=== PATIENT | female | born 1970 | race Caucasian/White ===

== ENCOUNTER 2016-08-22 21:55 | Emergency (ER) | payer OTHER ==
[~2016-08-22] VITALS: Ht 162.6 cm; Wt 59.0 kg
[~2016-08-22 21:55] MED LIST: ATIVAN1 MG PO; NAPROXEN SODIU220 M2 PO; PROZAC 10 MG CA10 MG PO
[2016-08-22 23:31] LABS: ABSOLUTE NEUTROPHILS 2.1 thou/uL (1.4-8.2); BASOPHILS 0.7 % (0.0-2.0); EOSINOPHILS 2.6 % (0.0-3.0); HEMATOCRIT 41.5 % (37.0-47.0); HEMOGLOBIN 14.1 gm/dL (12.0-15.0); LYMPHOCYTES 46.9 % (24.0-44.0); MCH 33.6 pg (26.0-34.0); MCV 98.8 fL (80.0-100.0); MONOCYTES 8.2 % (1.0-8.0); PLATELET COUNT 381 thou/uL (150-400); POLYS 41.6 % (36.0-66.0); RDW 12.7 % (10.5-14.5)
[2016-08-22 23:32] LABS: MANUAL DIFF NO
[2016-08-22 23:39] LABS: CALCIUM 8.9 mg/dL (8.5-10.1); CREATININE 0.6 mg/dL (0.6-1.0); POTASSIUM 3.9 mmol/L (3.5-5.1)
[2016-08-22 23:44] LABS: TOTAL BILIRUBIN 0.2 mg/dL (<0.1-1.0); TOTAL PROTEIN 7.7 g/dL (6.4-8.2)
[2016-08-22 23:51] VITALS: BP 125/81
== END 2016-08-22 23:21 | disposition home or self-care (01) ==
LOC: ER 21:55
PROVIDERS: Physician Assistant
DX: S93.601A Unspecified sprain of right foot, initial encounter (principal); F41.9 Anxiety disorder, unspecified; F32.9 Major depressive disorder, single episode, unspecified; F17.210 Nicotine dependence, cigarettes, uncomplicated; F10.99 Alcohol use, unspecified with unspecified alcohol-induced disorder; Z88.2 Allergy status to sulfonamides; Z88.5 Allergy status to narcotic agent; X58.XXXA Exposure to other specified factors, initial encounter; Y93.89 Activity, other specified; Y92.89 Other specified places as the place of occurrence of the external cause; Y99.8 Other external cause status

== ENCOUNTER 2017-05-06 07:09 | Emergency (ER) | payer OTHER ==
[~2017-05-06] VITALS: Ht 162.6 cm; Wt 68.0 kg
--- NOTE | ~2017-05-06 | EKG ---
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
[~2017-05-06 07:09] MED LIST changes: +CHLORDIAZEPOXID25 M1 PO
[2017-05-06] MEDS ORDERED: NEURONTIN100 MG PO (07:40)
[2017-05-06] MEDS ORDERED: SEROQUEL 25 MG25 M1 PO (07:41)
[2017-05-06] MEDS ORDERED: PROPRANOLOL 1010 M1 PO (07:42)
[2017-05-06] MEDS ORDERED: PROZAC20 MG PO (07:43)
[2017-05-06 07:50] LABS: HEMOGLOBIN 14.7 gm/dL (12.0-15.0); MCH 33.8 pg (26.0-34.0); MCHC 34.9 g/dL (28.0-37.0); MCV 97.1 fL (80.0-100.0); PLATELET COUNT 306 thou/uL (150-400); RBC 4.33 mil/uL (4.20-5.00); WBC 4.9 thou/uL (4.0-11.0)
[2017-05-06 07:57] LABS: ANION GAP 12 mmol/L (7-16); BUN 7 mg/dL (7-18); CALCIUM 9.4 mg/dL (8.5-10.1); CHLORIDE 102 mmol/L (98-107); CO2 27 mmol/L (21-32); CREATININE 0.7 mg/dL (0.6-1.0); GLUCOSE 93 mg/dL (74-106); POTASSIUM 4.2 mmol/L (3.5-5.1); SODIUM 141 mmol/L (136-145)
[2017-05-06 08:05] LABS: ALBUMIN 4.2 g/dL (3.4-5.0); LIPASE 178 U/L (73-393); MAGNESIUM 1.5 mg/dL (1.8-2.4); SGOT 41 U/L (15-37); SGPT 63 U/L (30-65); TOTAL BILIRUBIN 0.3 mg/dL (<0.1-1.0); TOTAL PROTEIN 8.3 g/dL (6.4-8.2); TROPONIN-I < 0.04 ng/mL (<0.06)
[2017-05-06] MEDS ORDERED: PRILOSEC 20 MG20 MG PO (08:29)
[2017-05-06] MEDS ORDERED: ATIVAN1 MG PO (08:29)
[2017-05-06] MEDS ORDERED: MAG-OXIDE400 MG PO (08:29)
[2017-05-06 08:31] LABS: ABSOLUTE NEUTROPHILS 2.7 thou/uL (1.4-8.2); ANISOCYTOSIS 1+
== END 2017-05-06 11:29 | disposition home or self-care (01) ==
LOC: ER 07:09
PROVIDERS: Emergency Medicine
DX: F41.0 Panic disorder [episodic paroxysmal anxiety] (principal); R10.13 Epigastric pain; E83.42 Hypomagnesemia; F10.10 Alcohol abuse, uncomplicated; F17.210 Nicotine dependence, cigarettes, uncomplicated; Z88.1 Allergy status to other antibiotic agents; Z88.8 Allergy status to other drugs, medicaments and biological substances

== ENCOUNTER 2017-09-20 18:16 | Emergency (ER) | payer OTHER ==
[~2017-09-20] VITALS: Ht 162.6 cm; Wt 63.5 kg
[~2017-09-20 18:16] MED LIST changes: +MAG-OXIDE400 MG PO; +NEURONTIN100 MG PO; +PRILOSEC 20 MG20 MG PO; +PROPRANOLOL 1010 M1 PO; +PROZAC20 MG PO; +SEROQUEL 25 MG25 M1 PO
[2017-09-20] MEDS ORDERED: CENTANY30 GM TOP (19:57)
[2017-09-20] MEDS ORDERED: KEFLEX500 M1 PO (19:57)
[2017-09-20 20:06] VITALS: BP 126/79
== END 2017-09-20 20:10 | disposition home or self-care (01) ==
LOC: ER 18:16
DX: L03.113 Cellulitis of right upper limb (principal); F17.210 Nicotine dependence, cigarettes, uncomplicated; F41.9 Anxiety disorder, unspecified; F32.9 Major depressive disorder, single episode, unspecified; Z88.5 Allergy status to narcotic agent; Z88.2 Allergy status to sulfonamides

== ENCOUNTER 2018-07-29 00:14 | Emergency (ER) | payer OTHER ==
[~2018-07-29] VITALS: Ht 162.6 cm; Wt 79.4 kg
[~2018-07-29 00:14] MED LIST changes: +CENTANY30 GM TOP; +KEFLEX500 M1 PO
[2018-07-29 01:11] LABS: AMP/METHAMP Negative (Negative); BARBITURATES Negative (Negative); BENZODIAZEPINES Negative (Negative); COCAINE Negative (Negative); METHADONE Negative (Negative); OPIATES Negative (Negative); PCP Negative (Negative)
[2018-07-29 01:16] LABS: CALCIUM 8.2 mg/dL (8.5-10.1); CREATININE 0.5 mg/dL (0.6-1.0); POTASSIUM 3.7 mmol/L (3.5-5.1)
[2018-07-29 01:18] LABS: HEMATOCRIT 37.4 % (37.0-47.0); HEMOGLOBIN 12.8 gm/dL (12.0-15.0); MCH 32.4 pg (26.0-34.0); MCHC 34.1 g/dL (28.0-37.0); MCV 95.1 fL (80.0-100.0); RBC 3.94 mil/uL (4.20-5.00); RDW 13.6 % (10.5-14.5)
[2018-07-29 05:55] VITALS: BP 109/74
== END 2018-07-29 05:56 | disposition home or self-care (01) ==
LOC: ER 00:14
PROVIDERS: Emergency Medicine
DX: R45.851 Suicidal ideations (principal); F10.10 Alcohol abuse, uncomplicated; F17.210 Nicotine dependence, cigarettes, uncomplicated; F41.9 Anxiety disorder, unspecified; F32.9 Major depressive disorder, single episode, unspecified; Z88.2 Allergy status to sulfonamides; Z88.5 Allergy status to narcotic agent; Y90.0 Blood alcohol level of less than 20 mg/100 ml

== ENCOUNTER 2018-10-30 03:16 | Emergency (ER) | payer OTHER ==
[~2018-10-30] VITALS: Ht 165.1 cm; Wt 59.0 kg
[2018-10-30 04:05] LABS: URINE BILIRUBIN NEGATIVE (Negative); URINE BLOOD TRACE (Negative); URINE CLARITY CLEAR; URINE COLOR YELLOW; URINE GLUCOSE-RANDOM* NEGATIVE (Negative); URINE KETONES NEGATIVE (Negative); URINE LEUKOCYTES-REFLEX TRACE (Negative); URINE NITRITE-REFLEX NEGATIVE (Negative); URINE PROTEIN (DIPSTICK) NEGATIVE (Negative); URINE SPECIFIC GRAVITY <= 1.005 (1.005-1.035); URINE UROBILINOGEN 0.2 E.U./dl (0.2-1.0)
[2018-10-30 04:11] LABS: AMP/METHAMP Negative (Negative); BARBITURATES Negative (Negative); BENZODIAZEPINES Negative (Negative); COCAINE Negative (Negative); METHADONE Negative (Negative); OPIATES Negative (Negative); PCP Negative (Negative)
[2018-10-30 04:39] LABS: ABSOLUTE NEUTROPHILS 2.2 thou/uL (1.4-8.2); BASOPHILS 0.8 % (0.0-2.0); EOSINOPHILS 1.1 % (0.0-3.0); HEMATOCRIT 41.3 % (37.0-47.0); LYMPHOCYTES 44.2 % (24.0-44.0); MCH 33.8 pg (26.0-34.0); MCHC 33.8 g/dL (28.0-37.0); MCV 100.1 fL (80.0-100.0); MONOCYTES 11.9 % (1.0-8.0); PLATELET COUNT 300 thou/uL (150-400); RBC 4.13 mil/uL (4.20-5.00); RDW 13.2 % (10.5-14.5); WBC 5.3 thou/uL (4.0-11.0)
[2018-10-30 04:59] LABS: ALBUMIN 4.2 g/dL (3.4-5.0); ANION GAP 15 mmol/L (7-16); BUN 13 mg/dL (7-18); CALCIUM 9.3 mg/dL (8.5-10.1); CHLORIDE 102 mmol/L (98-107); CO2 25 mmol/L (21-32); CREATININE 0.6 mg/dL (0.6-1.0); GLUCOSE 107 mg/dL (74-106); POTASSIUM 3.7 mmol/L (3.5-5.1); SGOT 40 U/L (15-37); SGPT 37 U/L (30-65); SODIUM 142 mmol/L (136-145); TOTAL BILIRUBIN 0.3 mg/dL (<0.1-1.0)
[2018-10-30 05:00] VITALS: BP 97/57
[2018-10-30 05:22] LABS: SALICYLATE 4.7 mg/dL (2.8-20.0)
--- NOTE | 2018-10-30 08:14 | EKG ---
[address] [address] ELECTROCARDIOGRAM REPORT Name: ELVIA CAIN [id number] ������������������ Admission: 10/30/18 ������������������ Attend Phys: Discharge: 10/30/18 ������������������ Date of : 72 Report #: [id number] ����������������������������������������������������������������� [id number] THIS REPORT FOR: //name// 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 : 1970 Requested By: Jesse Rubio Order Number: [id number] MD: Alfonso Wellington Measurements Intervals [place] Rate: 87 P: 64 [place]: 161 QRS: 58 QRSD: 83 T: 54 QT: 352 QTc: 424 Interpretive Statements Sinus rhythm Normal tracing Compared to ECG 08/25/2018 22:53:32 Poor R-wave progression no longer present Electronically Signed On 10-30-2018 8:13:58 CDT by Alfonso Wellington [email or web address] ��������������������������������������������� <ELECTRONICALLY SIGNED> ���������������������������������������� By: Alfonso Wellington MD, [facility] ��������������������������������������������� 10/30/18 0813 [id number] 2 Alfonso Wellington MD, FACC /EPI
== END 2018-10-30 05:30 | disposition left against medical advice (07) ==
LOC: ER 03:16
PROVIDERS: Emergency Medicine
DX: K21.9 Gastro-esophageal reflux disease without esophagitis (principal); F10.10 Alcohol abuse, uncomplicated; R73.9 Hyperglycemia, unspecified; F41.9 Anxiety disorder, unspecified; F32.9 Major depressive disorder, single episode, unspecified; F17.210 Nicotine dependence, cigarettes, uncomplicated; Z88.6 Allergy status to analgesic agent; Z88.2 Allergy status to sulfonamides; Y90.8 Blood alcohol level of 240 mg/100 ml or more